=== PATIENT | female | born 1990 | race Caucasian/White ===

== ENCOUNTER 2024-08-25 12:17 | Outpatient (RCR) | payer OTHER, SELFPAY ==
[2024-08-26] MEDS: RHO(D) IMMUNE GLOBULIN 300 MCG/2 ML SYRINGE IM (15:49)
== END 2024-11-23 23:59 | disposition home or self-care (01) ==
LOC: ANHLAB 12:17
PROVIDERS: Visit Provider Obstetrics & Gynecology
DX: Z36.89 Encounter for other specified antenatal screening (principal); Z29.13 Encounter for prophylactic Rho(D) immune globulin
CPT/HCPCS: 36415; 85461; 86850; 86900; 86901; 90384; 96372; J2790

== ENCOUNTER 2024-11-11 02:58 | Observation (INO) | payer OTHER, SELFPAY ==
--- OUTSIDE RECORDS SUMMARY | 2024-11-11 04:13 | XMS_ITS | Clinical Summary ---
Author Organization [facility] Address [address] [place] [id number] Care Team Providers Care Paint Stripper Name Role Phone Mavis Mauricio MD Primary Care Provider [phone] Social History Tobacco Use Types Packs/Day Years Used Date Smoking Tobacco: Never Assessed Comments Unknown Sex and Gender Information Value Date Recorded Sex Assigned at Not on file Legal Sex Female 7:19 PM CDT Gender Identity Not on file Sexual Orientation Not on file Plan of Treatment Health Maintenance Due Date Last Done Comments Cervical Cancer Screening Pa p Smear (Age 30 to 64) Every 3 Years 1991 Annual Physical 1994 Hepatitis C 2009 DTaP, Tdap and Td Vaccines ( 1 - Tdap) 2010 Hepatitis B Vaccines (1 of 3 - 19+ 3-dose series) 2010 Cervical Cancer Screening Pa p with HPV Testing (Age 30 to 64) Every 5 Years 2021 Cervical Cancer Screening with HPV 2021 COVID-19 Vaccine (2023-2 5 season) 2024 HPV Vaccines Aged Out No longer eligi ble based on patient's age to complete this topic Meningococcal B Vaccine Aged Out No l onger eligible based on patient's age to complete this topic Meningococcal Vaccine Aged Out No aldair bryant eligible based on patient's age to complete this topic Pneumococcal Vaccine: Pediat rics (0 to 5 Years) and At-Risk Patients (6 to 49 Years) Aged Out No longer eligible b ased on patient's age to complete this topic RSV Immunizations Under 20 Months Aged Out No longer eligible based on patient's age to complete this topic Care Teams Paint Stripper Relationship Specialty Start Date End Date Mavis Mauricio MD [address] [address] PCP - General 08/02/13
--- OUTSIDE RECORDS SUMMARY | 2024-11-11 04:13 | XMS_ITS | Clinical Summary ---
Author Organization [facility] Address [address] [place] [address] Phone Care Team Providers Care Flat Spring Assembler Name Role Phone Provider, None Primary Care Provider Unavailabl e Allergies No known active allergies Medications Ibuprofen (ADVIL PO) Take by mouth. Active minocycline 100 MG PO CAPS Take 100 mg by mouth daily. Active tretinoin 0.05 % EX CREA Apply nightly. Active Clindamycin Phos-Benzoyl Perox 1-5 % EX GEL Apply 2 times daily. Apply to affected area after the skin has been cleansed and dried. Active Active Problems No known active problems Immunizations Immunization Administration Dates Next Due Influenza Vaccine greater than 3 yrs 12/27/2011 Social History Tobacco Use Types Packs/Day Years Used Date Smoking Tobacco: Never Smokeless Tobacco: Never Alcohol Use Standard Drinks/Week Comments No 0 (1 standard drink = 0.6 oz pur e alcohol) Comments No Sex and Gender Information Value Date Recorded Sex Assigned at Not on file Legal Sex Female 3:59 AM SENIOR FINANCE MANAGER Gender Identity Not on file Sexual Orientation Not on file Last Filed Vital Signs Vital Sign Reading Time Taken Comments Blood Pressure 146/81 05/27/2012 5:55 PM SENIOR FINANCE MANAGER Pulse 77 09/25/2013 4:45 PM CDT Temperature 37.2 C (99 F) 09/25/2013 4:45 PM CDT Respiratory Rate 18 09/25/2013 4:45 PM CDT Oxygen Saturation 97% 09/25/2013 4:45 PM CDT Inhaled Oxygen Concentration - - Weight 61.2 kg (135 lb) 09/25/2013 4:45 PM CDT s tated Height 171.5 cm (5' 7.5) 09/25/2013 4:45 PM CDT stated Body Mass Index 20.83 09/25/2013 4:45 PM CDT Plan of Treatment Health Maintenance Due Date Last Done Comments Hepatitis C Virus (HCV) Screening 1991 TdaP Immunization 1991 Hepatitis B Immunization (1 of 3 - 19+ 3-dose series) 2010 Pap Smear 2012 Cervical Cancer Screening (CCS) 2021 HPV/Cotest 2021 Influenza Immunization (#1) 2024 12/27/2011 SARS-COV-2 Immunization ( - 2023- season) 2024 Respiratory Syncytial Virus (RSV) Immunization (Adult) (1 - 1-dose 75+ series) 2066 Meningococcal Immunization (ACWY) Aged Out No longer eligible based on patient's age to complete this topic Pneumococcal Immunization Combined Aged Out No longer eligible based on patient's age to complete this topic Rotavirus Immunization Aged Out No lo nger eligible based on patient's age to complete this topic Care Teams Flat Spring Assembler Relationship Specialty Start Date End Date Provider, None [place] PCP - General 01/22/11
--- OUTSIDE RECORDS SUMMARY | 2024-11-11 04:13 | XMS_ITS | Clinical Summary ---
Author Organization [facility] Address [address] [place] [address] Care Team Providers Care Nuclear Auxiliary Operator Name Role Phone Unavailable Primary Care Provider Unavailabl e Source Comments [facility],non-owned Affiliates and Associated Physician Practices is amultiple site organization consisting of ambulatory clinics and hospital sitesin [place], [place], [place] and [place]. This disclosure is being madepursuant to the Care Everywhere program and may not contain all information available regarding this patient. Last updated 18.[facility] Allergies No known active allergies Immunizations Immunization Administration Dates Next Due INFLUENZA VACCINE, QUADR. (F LUZONE; FLULAVAL; FLUARIX; AFLURIA QUADRIVALENT; 6MO+), 0.5 ML (IIV4) 03/02/2019 Social History Tobacco Use Types Packs/Day Years Used Date Smoking Tobacco: Never Assessed Comments Unknown Sex and Gender Information Value Date Recorded Sex Assigned at Not on file Legal Sex Female 10:59 AM CDT Gender Identity Not on file Sexual Orientation Not on file Plan of Treatment Health Maintenance Due Date Last Done Comments HIV SCREENING 2006 HEPATITIS C SCREENING 06/12/2009 DTAP/TDAP/TD VACCINES (1 - Tdap) 2010 HEPATITIS B VACCINE (1 of 3 - 19+ 3-dose series) 2010 COVID-19 VACCINE ( - 2023-2 5 season) 2024 DEPRESSION SCREENING 05/14/2024 INFLUENZA VACCINE (Season Ended) 2025 03/02/2019, 12/27/2011 ZOSTER VACCINE (1 of 2) 2041 HIB VACCINE Aged Out No longer eligi ble based on patient's age to complete this topic HPV VACCINE Aged Out No longer eligi ble based on patient's age to complete this topic MENINGOCOCCAL (Group B) VACCINE SHARED DECISION-MAKING Aged Out No longer eligible based on patient's age to complete this topic MENINGOCOCCAL GROUPS A/C/Y/W VACCINE Aged Out No longer eligible b ased on patient's age to complete this topic PNEUMOCOCCAL VACCINE Aged Out No long er eligible based on patient's age to complete this topic Insurance [facility] Address: [facility] [id number] [place] [address]
--- NOTE | 2024-11-11 04:14 | OBADM ---
This patient, Vilma Yoder, admitted to the OB room Labor/Delivery/Recovery 105 for observation. Patient/family oriented to hospital policies and general routines including ID bracelet, bed and alarms, visiting hours, pain management, procedures, bathroom and other care routines, personal items, smoking policy, room service/diet, and visiting hours. Patient/Family are encouraged to report perceived risks to care and to ask questions if they do not understand what they are told or what they should do.
--- NOTE | 2024-11-11 04:39 | PC.NURSE ---
[id number] FHT 135 moderate variability with accelerations, no declerations noted contractions: 3-3 min apart lasting 50-80 seconds. mild to moderate to palpation
--- NOTE | 2024-11-12 11:58 | PM.OBTRLD ---
OB - Triage/Final Diagnosis Visit Information Reason for evaluation: threatened labor Comments/Additional reasons for admission: I have assessed the risk for this patient, Vilma Yoder, and determined that she would benefit from observation care.
== END 2024-11-11 04:36 | disposition home or self-care (01) ==
PROVIDERS: Admitting Provider Obstetrics & Gynecology; Visit Provider Obstetrics & Gynecology
DX: O47.1 False labor at or after 37 completed weeks of gestation (principal); Z3A.40 40 weeks gestation of pregnancy
CPT/HCPCS: G0378; G0379

== ENCOUNTER 2024-11-11 22:59 | Inpatient (IN) | payer OTHER, SELFPAY ==
[2024-11-11 23:15] VITALS: BP 135/76; PULSE 106
--- OUTSIDE RECORDS SUMMARY | 2024-11-11 23:16 | XMS_ITS | Clinical Summary ---
Author Organization [facility] Address [address] [place] [address] Phone Care Team Providers Care Marketing Programs Manager Name Role Phone Provider, None Primary Care [...] on file Legal Sex Female 3:59 AM NIKE ATHLETE Gender Identity Not on file Sexual Orientation Not on file Last Filed Vital Signs Vital Sign Reading Time Taken Comments Blood Pressure 146/81 05/27/2012 5:55 PM NIKE ATHLETE Pulse 77 09/25/2013 4:45 PM CDT Temperature [...] age to complete this topic Care Teams Marketing Programs Manager Relationship Specialty Start Date End Date Provider, None [place] PCP - General 01/22/11
--- OUTSIDE RECORDS SUMMARY | 2024-11-11 23:16 | XMS_ITS | Clinical Summary ---
Author Organization [facility] Address [address] [place] [address] Care Team Providers Care Button Machine Operator Name Role Phone Unavailable Primary Care Provider Unavailabl e Source Comments [facility],non-owned Affiliates and Associated Physician Practices is amultiple site organization consisting of ambulatory clinics and hospital sitesin [place], [place], [place] and [place]. This disclosure is being madepursuant to the Care Everywhere program and may not contain all information available regarding this patient. Last updated 18.[facility] Allergies No known active allergies Immunizations Immunization [...] patient's age to complete this topic Insurance [facility] Address: [facility] [id number] [place] [address]
--- OUTSIDE RECORDS SUMMARY | 2024-11-11 23:16 | XMS_ITS | Clinical Summary ---
Author Organization [facility] Address [address] [place] [address] Care Team Providers Care Middle School Spanish Teacher Name Role Phone Mavis Mauricio MD Primary Care Provider [phone] Social History Tobacco Use Types Packs/Day Years [...] age to complete this topic Care Teams Middle School Spanish Teacher Relationship Specialty Start Date End Date Mavis Mauricio MD [address] [address] PCP - General 08/02/13
[2024-11-12] VITALS (27 sets, daily range): BP systolic 94–156; BP diastolic 57–98; PULSE 77–117; RESP 16–18; TEMP 36.6–37.2; O2SAT 98; BMI 25.4
[2024-11-12 00:17] LABS: Hematocrit 43.7 % (37.0-47.0); Hemoglobin 14.9 g/dL (12.0-15.0); Immature Granulocyte Percent A 1.8 % (0-0.5); Lymphocytes Absolute Auto 1.89 K/mm3 (0.9-3.2); Mean Corpuscular HGB Conc 34.1 g/dl (32-36); Mean Corpuscular Hemoglobin 30.9 pg (26-34); Mean Corpuscular Volume 90.7 fl (80-100); Nucleated Red Blood Cells Absolute Auto 0.000 K/mm3 (0.0-0.012); Nucleated Red Blood Cells Perc 0.0 % (0.0-0.2); Platelet Count Result 316 k/mm3 (150-375); Red Blood Count 4.82 M/mm3 (4.2-5.4); White Blood Count 19.6 K/mm3 (4.5-10.0)
[2024-11-12 00:37] LABS: Syphilis IgG/IgM Antibody Non-Reactive (Nonreactive)
--- NOTE | 2024-11-12 04:45 | LDADM ---
This patient, Vilma Yoder, was admitted to Labor/Delivery/Recovery 105 on 11/11/24 at 22:59. Plans for labor, pain management and were discussed with patient. Patient/family oriented to hospital policies and general routines including ID bracelet, bed and alarms, visiting hours, pain management, procedures, bathroom and other care routines, personal items, smoking policy, room service/diet and guest tray routines, infant security routines, and visiting hours. Patient/Family are encouraged to report perceived risks to care and to ask questions if they do not understand what they are told or what they should do. See OBIX for further documentation.
--- NOTE | 2024-11-12 06:55 | PM.IMHP ---
H&P: HPI History of Present Illness Date/Time: 11/12/24 06:55 Chief Complaint: Labor at term Narrative: 34-year-old 1 para 0 whose last menstrual period was 02/01/2024, EDC is 11/07/2024, confirmed by 9 week ultrasound presents at 40 and half weeks gestation in active labor. Her has been uncomplicated. She is negative for group B strep receive RhoGAM at 20 weeks diabetic screen was normal Review of Systems Review of Systems: All systems reviewed & are unremarkable except as noted in HPI and below PMFSH Family History Family History Other Patient denies significant medical history Social History Social History Smoking status: Never smoker Second hand tobacco smoke exposure: No Substance use: never Do You Feel Safe in your Home?: Yes Lack of Transportation: No Lack of Food: Never True Current Housing: I Have Housing Concerned About Future Housing: No Difficulty Paying Gas/Electric Bills: No Difficulty Paying for Meds: No Currently Unemployed: No Education: Bachelor's Degree Difficulty w/ Childcare or Family Care: No Spiritual care concerns: No Meds Home Medications and Allergies Home Medications ?Medication ?Instructions ?Recorded ?Confirmed ?Type vit no.95-ferrous 1 tablet PO DAILY 10/13/24 10/13/24 History fumarate 28 mg-folic acid 800 mcg tablet () Allergies Allergy/AdvReac Type Severity Reaction Status Date / Time No Known Allergies Allergy Verified 10/13/24 13:37 Vital Signs Vital Signs - 24 hr 11/11/24 23:15 11/12/24 01:00 11/12/24 04:39 Temperature 97.8 F Pulse Rate 106 H 102 H Blood Pressure 135/76 143/87 H 11/12/24 05:09 11/12/24 05:29 11/12/24 05:45 Temperature 98.2 F Pulse Rate 98 97 Blood Pressure 156/98 H 105/64 11/12/24 06:00 11/12/24 06:15 11/12/24 06:23 Temperature 98.1 F Pulse Rate 94 110 H Blood Pressure 105/60 128/73 11/12/24 06:24 Temperature 98.1 F Pulse Rate Blood Pressure Exam Const: General: cooperative, healthy appearing and comfortable Nutritional Appearance: average body habitus Orientation/consciousness: oriented to person, oriented to place and oriented to time HENMT: Head: normal to inspection Resp: Effort & Inspection: normal respiratory effort Cardio: Rate: regular rate Rhythm: regular rhythm Heart sounds: S1 normal heart sound present and S2 normal heart sound present GI: Inspection: normal to inspection (Gravid soft uterus) : External Female Exam: normal external appearance Speculum Exam - Vagina: normal appearance of the vagina Speculum Exam - Cervix: normal appearance of the cervix (Cervix /0 station. Attempted AROM. FHTs reassuring) H&P: Results Labs Labs: Short CBC 11/11/24 Range/Units 23:51 WBC 19.6 H (4.5-10.0) K/mm3 Hgb 14.9 (12.0-15.0) g/dL Hct 43.7 (37.0-47.0) % Plt Count 316 (150-375) k/mm3 Assessment and Plan Assessment and plan (1) Term : Code(s): Z34.90 - Encounter for supervision of normal , unspecified, unspecified trimester Status: Acute Plan Spontaneous vaginal delivery is expected
--- NOTE | 2024-11-12 10:19 | PM.OBPNLAB ---
Pain Control Date/time seen: 11/12/24 10:19 Pain control: tolerating well Pelvic Exam Dilation (cm): 10 Effacement (%): 100 station: -1 Amniotic membrane status: Leaking
[2024-11-12] MEDS: OXYTOCIN 30 UNITS/NS 500 ML 30 UNITS/500 ML BAG 999 UNITS IV CONT (12:42)
[2024-11-12] MEDS: LIDOCAINE 1% LOCAL INJ 20 ML VIAL (12:43)
--- NOTE | 2024-11-12 12:49 | PM.OBPRVD ---
OB - Vaginal Delivery Note Procedure Delivery date: 11/12/24 Induction method: None Delivery augmentation: Rupture of Membranes Delivery monitor: External FHT and External Uterine Route of delivery: Episiotomy description: None Laceration Description: Perineal - 2nd Degree Delivery repair: vicryl Specimen: No Quantitative Blood Loss (ml): 62 Anesthesia type: Local Disposition: Floor Complications: No immediate complications Narrative: Patient was admitted in active labor at term had been complicated she had a artificial rupture membranes performed in the a.m. after she was about 7cm and progressed to completely dilated she pushed delivered the head spontaneously in the WAN position. Anterior posterior shoulder delivered spontaneously after relieving the loose nuchal cord around the occiput and patient given Apgars of 8 1minutes and 8 [id number] cord blood was drawn. Placenta delivered intact spontaneously. Twenty of Pitocin placed IV to help firm the uterus a small second-degree laceration was noted closed with layered 3-0 Vicryl she tolerated procedure well all sponge, instrument counts were correct. Were no immediate complications [place] Baby Date of : 11/12/24 Time of : 12:36 Gestational Age by Date: 40 Infant gender: Male Weight (pounds): 8 Weight (ounces): 9 presentation: vertex position: Right Occiput Anterior Placenta delivery description: Spontaneous Cord Vessel Description: 3 Vessels, Nuchal Cord, Loose and Reduced score one minute: 8 score five minutes: 8
--- NOTE | 2024-11-12 12:52 | P.DS_ITS ---
DS: Admitting Diagnosis Discharge Date 11/14/2024 Admitting Diagnosis Term DS: Discharge Diagnosis Discharge Diagnosis (1) Term : Code(s): Z34.90 - Encounter for supervision of normal , unspecified, unspecified trimester Status: Acute DS: Summary Hospital Course Reason for hospitalization: Patient admitted on the evening of 725 which resulted in a spontaneous vaginal delivery at 7 [id number] Hospital Course: Patient's hospital course unremarkable. She remained afebrile. She was voiding without difficulty, ambulating, eating regular diet, and generally without complaints. Time Spent with Patient Time attestation: Total time spent providing and/or coordinating discharge services: Exam Const: General: cooperative, healthy appearing and comfortable Nutritional Appearance: average body habitus Orientation/consciousness: oriented to person, oriented to place and oriented to time HENMT: Head: normal to inspection Resp: Effort & Inspection: normal respiratory effort Cardio: Rate: regular rate Rhythm: regular rhythm Heart sounds: S1 normal heart sound present and S2 normal heart sound present GI: Inspection: normal to inspection (Gravid soft uterus) : External Female Exam: normal external appearance Speculum Exam - Vagina: normal appearance of the vagina Speculum Exam - Cervix: normal appearance of the cervix (Cervix 8/90/0 station. Attempted AROM. FHTs reassuring) DS: Data Data Completed and Pending Labs on day of discharge: Labs from last 24 hours 11/11/24 23:51 WBC 19.6 H RBC 4.82 Hgb 14.9 Hct 43.7 MCV 90.7 MCH 30.9 MCHC 34.1 RDW 13.2 Plt Count 316 MPV 10.7 H Immature Gran % (Auto) 1.8 H Neut % (Auto) 82.8 H Lymph % (Auto) 9.6 L [place] % (Auto) 5.4 Eos % (Auto) 0.1 Baso % (Auto) 0.3 Lymph # (Auto) 1.89 [place] # (Auto) 1.1 H Eos # (Auto) 0.0 Baso # (Auto) 0.1 Abs Immat Gran (auto) 0.36 H Absolute Neuts (auto) 16.3 H Absolute Nucleated RBC 0.000 Nucleated RBC % 0.0 Syphilis IgG/IgM Ab Non-reactive Blood Type A Negative Antibody Screen Positive Antibody Identification Passive Due to RH Imm Glob Antigen Identification Cancelled JUSTICE, IgG Interpret Not Performed JUSTICE, Poly Interpret Negative JUSTICE, Complement Interp Not Performed Discharge Plan Discharge Attending physician on discharge: Kevin Garcia Discharging Clinician: Kevin Garcia Patient Disposition: Home Activity: may shower, no straining and pelvic rest Diet: heart healthy Wound Care Instructions: follow printed instructions Discharge Instructions: Education: Mom and Baby Guide Given to: Mother Follow-Up: Call your delivering provider's office for an appointment to be seen in: 6 weeks Mom and baby should come to the [facility] for the follow-up appointment. Appointment Date/Time: Thursday, November 14, 2024 at 8:00 a.m. What to expect at your follow-up visit: Blood Pressure Physical Assessment Call [phone] if you are unable to keep your appointment time. BREAST CARE: * Wear a snug supportive bra. * For engorgement discomfort: Breast Feeding: * Apply warm moist washcloths * Express milk as needed to relieve engorgement * Wear loose clothing Bottle Feeding: * May apply ice packs * For sore nipples: * Identify correct latch-on * Apply warm moist washcloths before and after nursing * Air dry nipples after nursing * May apply Lansinoh cream to nipples EPISIOTOMY/PERINEAL CARE: * Until bleeding stops, use your erica bottle after urinating * Change your pad frequently throughout the day * You may take sitz baths several times a day (fill your bathtub with warm water and soak for 20 minutes.) Do NOT bathe in the water * No tub baths until seen by your physician - You may shower ACTIVITY: * Rest as much as possible. * Do not exercise or lift anything heavier than your baby (such as laundry or o ther children.) * Avoid stairs or driving as much as possible. * Do not put anything into the vagina. No douching, tampons, or sexual activity until seen by physician. NOTIFY PHYSICIAN IF YOU HAVE ANY QUESTIONS OR IF ANY OF THE FOLLOWING SYMPTOMS OCCUR: * If your perineum becomes red, swollen, or more painful than what you have experienced in the hospital. * If your vaginal bleeding becomes foul smelling. * If your vaginal bleeding becomes more heavy than a period or if your bleeding changes from pink to bright red. However, you may pass an occasional walnut-sized clot once or twice for the first week . * If you experience a sharp, shooting pain in you calves. * If you discover a hard, reddened area on your breast or if you experience flu- like symptoms. DIET: * Eat regular, well-balanced meals. * Drink plenty of fluids daily. If , drink to thirst. Patient Language: Kyrgyz Stand Alone Forms: General Discharge Information Follow-up/Referrals: Kevin Garcia MD [Physician] - Discharge Medications: Continued PNV cmb#95-ferrous fumarate-FA [] 28 mg iron- 800 mcg tablet 1 tablet PO DAILY Date of admission: 11/11/24 22:59 Primary Care Provider: PHYSICIAN,PSYCHOLOGY ASSOCIATE Admitting Provider: Kevin Garcia Attending physician on admission: Kevin Garcia Condition: Stable
--- NOTE | 2024-11-12 15:40 | OBPPTRN ---
1535-Patient transferred to post room #280 via wheelchair. Support person present. Oriented to unit, room, information board, rooming in, admission packet and security measures. Patient verbalizes understanding.
--- NOTE | 2024-11-12 17:05 | PC.NURSE ---
Patient has baby skin to skin and needs assistance with latching. Baby was initially eager and gave several wide gapes but never maintained a seal on the breast. Mom was shown how to hold her breast in a bite for baby. He was unable to close his mouth around the breast despite repeated attempts. He acted like he was unable to feel the nipple in his mouth. Mom did not make any attempts to hold her breast or to latch infant independently. Further education will be needed. After a few minutes of trying, baby was sleepy and would not open his mouth any more. Mom is advised to keep him skin to skin and try again anytime she sees feeding cues or in a half hour. RN updated.
[2024-11-13 04:30] VITALS: BP 101/68; PULSE 74; RESP 18; TEMP 36.7; O2SAT 97
[2024-11-13 04:57] LABS: Hematocrit 37.8 % (37.0-47.0); Hemoglobin 12.7 g/dL (12.0-15.0)
--- NOTE | 2024-11-13 06:40 | PM.OBPNVD ---
OB - PN: Subj Subjective Date/time seen: 11/13/24 06:40 Patient comments: no complaints, pain well controlled and tolerating diet [place] feeding status: exclusively breast feeding OB - PN: Obj Data Labs 11/13/24 04:24 Labs: Laboratory Results - last 24 hr 11/13/24 04:24 Hgb 12.7 Hct 37.8 OB - PN A/P Assessment and Plan (1) Term : Code(s): Z34.90 - Encounter for supervision of normal , unspecified, unspecified trimester Status: Acute Plan [facility] care Time Spent With Patient Time: Total time spent is greater than 50% in coordination of care (as documented) at patient's floor/unit and/or counseling patient: Review of Systems Review of Systems: All systems reviewed & are unremarkable except as noted in HPI and below Exam Const: General: cooperative, healthy appearing and comfortable Nutritional Appearance: average body habitus Orientation/consciousness: oriented to person, oriented to place and oriented to time HENMT: Head: normal to inspection Resp: Effort & Inspection: normal respiratory effort Cardio: Rate: regular rate Rhythm: regular rhythm Heart sounds: S1 normal heart sound present and S2 normal heart sound present GI: Inspection: normal to inspection (Gravid soft uterus) : External Female Exam: normal external appearance Speculum Exam - Vagina: normal appearance of the vagina Speculum Exam - Cervix: normal appearance of the cervix (Cervix 8/90/0 station. Attempted AROM. FHTs reassuring)
--- NOTE | 2024-11-13 06:41 | PM.OBPRVD ---
OB - Vaginal Delivery Note Procedure Delivery date: 11/13/24 Laceration Description: Perineal - 2nd Degree Anesthesia type: Local [place] Baby Date of : 11/12/24 Time of : 12:36 Gestational Age by Date: 40 Infant gender: Male Weight (pounds): 8 Weight (ounces): 9 presentation: vertex position: Right Occiput Anterior Placenta delivery description: Spontaneous Cord Vessel Description: 3 Vessels, Nuchal Cord, Loose and Reduced score one minute: 8 score five minutes: 8
[2024-11-13 07:25] VITALS: BP 105/66; PULSE 72; RESP 18; TEMP 36.7; O2SAT 98
[2024-11-13 08:30] VITALS: PULSE 72; RESP 16; O2SAT 100
[2024-11-13] MEDS: DOCUSATE SODIUM 100 MG CAPSULE PO (09:20)
[2024-11-13 12:17] VITALS: BP 107/60; PULSE 71; RESP 16; TEMP 37.3; O2SAT 95
--- NOTE | 2024-11-13 13:20 | PC.NURSE ---
Patient set up with a breast pump due to ineffective feeding and maternal preference to pump and bottle feed at this time. Mother was shown proper sizing and placement of flanges (21mm), pump settings, and cleaning of pump parts. Recommended 15 minutes of pumping both breasts simultaneously. Patient is aware that pumping should not hurt. She is encouraged to use the highest comfortable suction setting, gradually increasing the level as she pumps. Patient provided with a basin for cleaning parts between uses. Breast milk storage guidelines given. Discussed use of expressed breast milk by placing drops of milk in baby?s mouth with a clean finger, syringe feeding, bottle feeding, or mixing colostrum with a small volume of formula and feeding with a bottle.?Parents feel like baby is taking the bottle well but mom still desires to breastfeed. We reviewed the need for consistent pumping and offering the breast often so that baby can still practice latching. Mom has her own breast pump but does not have all of the pieces needed here at the hospital. Primary RN updated.??
[2024-11-14 08:36] VITALS: BP 117/63; PULSE 94; RESP 18; TEMP 36.9; O2SAT 100
== END 2024-11-13 19:45 | disposition home or self-care (01) | DRG 807 ==
LOC: ANHLDR 11-12 12:53 → ANHOB2 11-12 15:40
PROVIDERS: Admitting Provider Obstetrics & Gynecology; Visit Provider Obstetrics & Gynecology
DX: O69.81X0 Labor and delivery complicated by cord around neck, without compression, not applicable or unspecified (principal); Z37.0 Single live birth; Z3A.40 40 weeks gestation of pregnancy; O70.1 Second degree perineal laceration during delivery
CPT/HCPCS: 36415; 85014; 85018; 85025; 86593; 86850; 86880; 86900; 86901; 86902; A9270; J2003; J2590